=== PATIENT | female | born 1980 | race Caucasian/White ===

== ENCOUNTER 2017-10-05 02:43 | Inpatient (IN) | payer MEDICAID ==
[2017-10-05] MEDS ORDERED: CEFAZOLIN 2 GM/50 ML (PMX) 50 ML IV (04:00)
[2017-10-05] MEDS ORDERED: OXYTOCIN 30 UNITS/LR 500 ML IV ×2 (04:00→08:30)
[2017-10-05] MEDS ORDERED: METHYLERGONOVINE 0.2 MG INJ IM ×2 (04:00→08:30)
[2017-10-05] MEDS ORDERED: MISOPROSTOL 200 MCG TAB PR ×2 (04:00→08:30)
[2017-10-05] MEDS ORDERED: CARBOPROST 250 MCG INJ IM ×2 (04:00→08:30)
[2017-10-05] MEDS: LACTATED RINGER'S 1,000 ML IV ×5 (04:33→22:44)
[2017-10-05 04:50] LABS: ADD MAN DIFF? NO
[2017-10-05 04:52] LABS: WHITE BLOOD COUNT 8.9 10^3/ul (4.8-10.8)
[2017-10-05 04:52] LABS: BASOPHILS % 0.2 % (0.0-2.0); EOSINOPHILS # 0.1 10^3/ul (0.0-0.5); EOSINOPHILS % 0.9 % (0.0-7.0); HEMATOCRIT 36.2 % (37.0-47.0); HEMOGLOBIN 12.7 g/dl (12.0-16.0); LYMPHOCYTES % 33.9 % (15.0-51.0); MEAN CORPUSCULAR HGB CONC 35.1 g/dl (32.0-37.0); MEAN CORPUSCULAR VOLUME 85.4 fl (82.0-101.0); MEAN PLATELET VOLUME 10.8 fl (7.4-10.4); MONOCYTE # 0.6 10^3/ul (0.3-0.9); MONOCYTES % 6.2 % (0.0-11.0); NEUTROPHIL # 5.1 10^3/ul (1.6-7.5); NEUTROPHILS % 57.8 % (39.0-77.0); PLATELET COUNT 157 10^3/UL (140-415); RED BLOOD COUNT 4.24 10^6/ul (4.20-5.40); RED CELL DISTRIBUTION WIDTH 14.3 % (11.5-14.5)
[2017-10-05] MEDS ORDERED: BUTORPHANOL 2 MG INJ IV (05:00)
[2017-10-05 05:11] LABS: INR 0.91; PROTIME 12.3 Sec (11.9-14.9)
[2017-10-05 05:12] LABS: PARTIAL THROMBOPLASTIN TIME 28.3 Sec (25.0-35.0)
[2017-10-05 05:16] LABS: GLUCOSE 108 mg/dl (70-220)
[2017-10-05] MEDS ORDERED: DEXTROSE 5%-LR 1,000 ML IV (05:30)
[2017-10-05] MEDS ORDERED: morphine SULFATE/PF (10 MG/10 ML) INJ (06:34)
[2017-10-05] MEDS ORDERED: BUPIVACAINE 0.75%/DEXT (SPINAL) 2 ML INJ (06:34)
[2017-10-05] MEDS ORDERED: PHENYLephrine (100 MCG/ML) 5ML SYG ×5 (06:43→07:39)
[2017-10-05] MEDS ORDERED: OXYTOCIN 30 UNITS/LR 500 ML BAG IV (07:00)
[2017-10-05] MEDS ORDERED: ONDANSETRON 4 MG INJ (07:38)
[2017-10-05] MEDS: OXYTOCIN 30 UNITS/LR 500 ML IV ×2 (08:22→10:19)
[2017-10-05] MEDS ORDERED: OXYCODONE/ACETAMINOPHEN (5/325) TAB PO (08:30)
[2017-10-05] MEDS ORDERED: LANOLIN 7 GM TUBE TOP (08:30)
[2017-10-05] MEDS ORDERED: ZOLPIDEM 5 MG TAB PO (09:30)
[2017-10-05] MEDS ORDERED: ONDANSETRON 4 MG INJ IV ×2 (09:30)
[2017-10-05] MEDS ORDERED: HYDROmorphONE 0.5 MG/0.5 ML SYG IV ×2 (09:30)
[2017-10-05] MEDS ORDERED: FENTAnyl 50 MCG/ML VIAL IV (09:30)
[2017-10-05] MEDS ORDERED: HYDROmorphONE (0.2 MG/ML) 10ML SYG IV (09:30)
[2017-10-05] MEDS ORDERED: NALOXONE (0.4 MG/ML) INJ IV (09:30)
[2017-10-05] MEDS ORDERED: MEPERIDINE 25 MG INJ IV (09:30)
[2017-10-05] MEDS ORDERED: DIPHENHYDRAMINE 50 MG INJ IV ×2 (09:30)
[2017-10-05] MEDS ORDERED: PROCHLORPERAZINE 10 MG INJ IV (09:30)
[2017-10-05] MEDS: PROCHLORPERAZINE 10 MG INJ IV (09:32)
[2017-10-05] MEDS: KETOROLAC 30 MG INJ IV (09:34)
[2017-10-05] MEDS: ACCU-CHEK XX ×4 (13:06→20:05)
[2017-10-05] MEDS: SENNA/DOCUSATE NA (8.6MG/50MG) TAB PO ×2 (13:06→21:00)
[2017-10-05] MEDS: IBUPROFEN 800 MG TAB PO ×2 (13:09→22:00)
[2017-10-05] MEDS ORDERED: DEXTROSE 50% 50 ML SYRINGE IV ×2 (14:30)
[2017-10-05] MEDS ORDERED: GLUCOSE GEL 15 GRAM TUBE PO ×2 (14:30)
[2017-10-05] MEDS ORDERED: GLUCOSE GEL 15 GRAM TUBE BUCCAL (14:30)
[2017-10-05] MEDS ORDERED: GLUCAGON 1 MG INJ IM (14:30)
[2017-10-05 14:57] LABS: HEPATITIS B SURFACE ANTIBODY NEGATIVE (NEGATIVE); HEPATITIS C VIRAL ANTIBODY NEGATIVE (NEGATIVE)
[2017-10-05] MEDS: INSULIN ASPART [NOVOLOG] 3 ML PEN SC ×2 (18:05→22:57)
[2017-10-05 18:37] LABS: RAPID PLASMA REAGIN NONREACTIVE (NR)
[2017-10-05] MEDS: metFORMIN 500 MG TAB PO (20:21)
[2017-10-05] MEDS: FISH OIL 1,000 MG CAP PO (21:00)
[2017-10-06] MEDS: KETOROLAC 30 MG INJ IV ×2 (00:16→07:26)
[2017-10-06] MEDS: IBUPROFEN 800 MG TAB PO ×3 (05:55→21:26)
[2017-10-06] MEDS: INSULIN ASPART [NOVOLOG] 3 ML PEN SC ×4 (08:05→21:00)
[2017-10-06] MEDS: LACTATED RINGER'S 1,000 ML IV (08:23)
[2017-10-06] MEDS: metFORMIN 500 MG TAB PO ×2 (08:31→18:27)
[2017-10-06] MEDS: FISH OIL 1,000 MG CAP PO ×2 (08:35→21:27)
[2017-10-06] MEDS: SENNA/DOCUSATE NA (8.6MG/50MG) TAB PO ×2 (08:42→21:27)
[2017-10-06 08:57] LABS: ADD MAN DIFF? NO
[2017-10-06 09:05] LABS: WHITE BLOOD COUNT 10.1 10^3/ul (4.8-10.8)
[2017-10-06 09:05] LABS: BASOPHILS % 0.3 % (0.0-2.0); EOSINOPHILS % 0.4 % (0.0-7.0); HEMATOCRIT 33.4 % (37.0-47.0); LYMPHOCYTES # 2.7 10^3/ul (0.8-2.9); LYMPHOCYTES % 26.2 % (15.0-51.0); MEAN CORPUSCULAR HEMOGLOBIN 28.4 pg (29.0-33.0); MEAN CORPUSCULAR HGB CONC 32.9 g/dl (32.0-37.0); MEAN CORPUSCULAR VOLUME 86.3 fl (82.0-101.0); MEAN PLATELET VOLUME 10.5 fl (7.4-10.4); MONOCYTE # 0.5 10^3/ul (0.3-0.9); MONOCYTES % 4.4 % (0.0-11.0); NEUTROPHIL # 6.9 10^3/ul (1.6-7.5); NEUTROPHILS % 67.8 % (39.0-77.0); PLATELET COUNT 149 10^3/UL (140-415); RED BLOOD COUNT 3.87 10^6/ul (4.20-5.40); RED CELL DISTRIBUTION WIDTH 14.2 % (11.5-14.5)
[2017-10-06] MEDS: ACCU-CHEK XX ×3 (10:05→20:57)
[2017-10-06] MEDS: OXYCODONE/ACETAMINOPHEN (5/325) TAB PO ×2 (12:18→17:32)
[2017-10-07] MEDS: IBUPROFEN 800 MG TAB PO ×3 (05:37→22:40)
[2017-10-07] MEDS: INSULIN ASPART [NOVOLOG] 3 ML PEN SC ×4 (08:05→21:00)
[2017-10-07] MEDS: FISH OIL 1,000 MG CAP PO ×2 (08:34→21:03)
[2017-10-07] MEDS: metFORMIN 500 MG TAB PO ×2 (08:35→17:59)
[2017-10-07] MEDS: OXYCODONE/ACETAMINOPHEN (5/325) TAB PO ×2 (08:35→20:23)
[2017-10-07] MEDS: SENNA/DOCUSATE NA (8.6MG/50MG) TAB PO ×2 (08:35→21:03)
[2017-10-07] MEDS: ACCU-CHEK XX ×3 (10:44→21:04)
[2017-10-07] MEDS: MAGNESIUM HYDROXIDE 30ML CUP PO (18:55)
[2017-10-08] MEDS: OXYCODONE/ACETAMINOPHEN (5/325) TAB PO (02:09)
[2017-10-08] MEDS: IBUPROFEN 800 MG TAB PO ×2 (05:49→13:24)
[2017-10-08] MEDS: INSULIN ASPART [NOVOLOG] 3 ML PEN SC ×2 (08:05→11:50)
[2017-10-08] MEDS: FISH OIL 1,000 MG CAP PO (08:34)
[2017-10-08] MEDS: metFORMIN 500 MG TAB PO (08:34)
[2017-10-08] MEDS: SENNA/DOCUSATE NA (8.6MG/50MG) TAB PO (08:34)
[2017-10-08] MEDS: DIPHTH/TET/ACEL PERTUSS (ADULT) 0.5 ML VIAL IM* (09:00)
[2017-10-08 09:34] LABS: CHOLESTEROL 184 mg/dl (100-200)
[2017-10-08 09:34] LABS: CHOL/HDL RATIO 4.9 RATIO; HDL CHOLESTEROL 37 mg/dl (34-82)
[2017-10-08] MEDS: ACCU-CHEK XX ×2 (10:05→14:41)
[2017-10-08 10:09] LABS: LDL CHOLESTEROL,CALCULATED 41 mg/dl; TRIGLYCERIDES 530 mg/dl (0-149)
== END 2017-10-08 17:30 | disposition home or self-care (01) | DRG 766 ==
LOC: OBT 02:43 → L-D 02:43 → OBT 03:30 → L-D 03:30 → PP1 10:50
PROVIDERS: Obstetrics & Gynecology
PROC: 10D00Z1 Extraction of Products of Conception, Low, Open Approach (ICD-10-PCS; principal; 2017-10-05)
DX: O24.12 Pre-existing type 2 diabetes mellitus, in childbirth (principal); O34.211 Maternal care for low transverse scar from previous cesarean delivery; O99.283 Endocrine, nutritional and metabolic diseases complicating pregnancy, third trimester; O99.214 Obesity complicating childbirth; E66.01 Morbid (severe) obesity due to excess calories; E78.2 Mixed hyperlipidemia; E11.9 Type 2 diabetes mellitus without complications; Z68.39 Body mass index [BMI] 39.0-39.9, adult; O99.613 Diseases of the digestive system complicating pregnancy, third trimester; K76.0 Fatty (change of) liver, not elsewhere classified; Z37.0 Single live birth; Z3A.38 38 weeks gestation of pregnancy; Z79.84 Long term (current) use of oral hypoglycemic drugs
CPT/HCPCS: 80061; 82947; 82962; 85025; 85610; 85730; 86592; 86706; 86803; 86850; 86900; 86901; 99464

== ENCOUNTER 2018-06-14 21:35 | Emergency (ER) | payer MEDICAID, OTHER ==
[2018-06-15 01:18] LABS: ADD MAN DIFF? NO
[2018-06-15 01:21] LABS: BASOPHILS % 0.2 % (0.0-2.0); EOSINOPHILS # 0.2 10^3/ul (0.0-0.5); EOSINOPHILS % 1.8 % (0.0-7.0); HEMATOCRIT 39.1 % (37.0-47.0); HEMOGLOBIN 12.9 g/dl (12.0-16.0); LYMPHOCYTES # 3.2 10^3/ul (0.8-2.9); LYMPHOCYTES % 37.7 % (15.0-51.0); MEAN CORPUSCULAR HEMOGLOBIN 28.7 pg (29.0-33.0); MEAN CORPUSCULAR VOLUME 87.1 fl (82.0-101.0); MEAN PLATELET VOLUME 8.9 fl (7.4-10.4); MONOCYTE # 0.5 10^3/ul (0.3-0.9); MONOCYTES % 5.9 % (0.0-11.0); NEUTROPHIL # 4.6 10^3/ul (1.6-7.5); NEUTROPHILS % 53.9 % (39.0-77.0); PLATELET COUNT 233 10^3/UL (140-415); RED BLOOD COUNT 4.49 10^6/ul (4.20-5.40); RED CELL DISTRIBUTION WIDTH 12.1 % (11.5-14.5)
[2018-06-15 01:21] LABS: WHITE BLOOD COUNT 8.4 10^3/ul (4.8-10.8)
[2018-06-15 01:29] LABS: ADD UMIC YES; UR ASCORBIC ACID NEGATIVE (NEGATIVE); UR BILIRUBIN (Dip) NEGATIVE (NEGATIVE); UR BLOOD (Dip) 3+ mg/dL (NEGATIVE); UR CLARITY CLEAR (CLEAR); UR COLOR YELLOW (YELLOW); UR GLUCOSE (Dip) 1+ mg/dL (NEGATIVE); UR KETONES (Dip) TRACE mg/dL (NEGATIVE); UR LEUKOCYTE ESTERASE (Dip) NEGATIVE Leu/ul (NEGATIVE); UR MUCUS FEW /HPF (NONE SEEN); UR NITRITE (Dip) NEGATIVE (NEGATIVE); UR RBC 3 /HPF (0-5); UR SPECIFIC GRAVITY (Dip) 1.031 (1.003-1.030); UR SQUAMOUS EPITHELIAL CELL FEW /HPF (FEW); UR TOTAL PROTEIN (Dip) 1+ mg/dl (NEGATIVE); UR UROBILINOGEN (Dip) 1+ mg/dL (NEGATIVE); UR WBC 4 /HPF (0-5)
[2018-06-15 01:38] LABS: ALANINE AMINOTRANSFERASE 41 IU/L (13-69); ALBUMIN 4.4 g/dl (3.3-4.9); ALBUMIN/GLOBULIN RATIO 1.41; ALKALINE PHOSPHATASE 92 IU/L (42-121); ANION GAP 11 (5-13); ASPARTATE AMINO TRANSFERASE 30 IU/L (15-46); BILIRUBIN,INDIRECT 0.2 mg/dl (0-1.1); BILIRUBIN,TOTAL 0.2 mg/dl (0.2-1.3); BLOOD UREA NITROGEN 13 mg/dl (7-20); CALCIUM 9.5 mg/dl (8.4-10.2); CARBON DIOXIDE 27 mmol/L (21-31); CHLORIDE 103 mmol/L (97-110); CREATININE 0.48 mg/dl (0.44-1.00); Estimated GFR > 60 mL/min (>60); GLUCOSE 110 mg/dl (70-220); POTASSIUM 3.8 mmol/L (3.5-5.1); SODIUM 141 mmol/L (135-144); TOTAL PROTEIN 7.5 g/dl (6.1-8.1)
[2018-06-15 01:42] LABS: LIPASE 42 U/L (23-300)
== END 2018-06-15 03:22 | disposition home or self-care (01) ==
LOC: FTE 21:35
DX: O20.9 Hemorrhage in early pregnancy, unspecified (principal); O24.311 Unspecified pre-existing diabetes mellitus in pregnancy, first trimester; R10.2 Pelvic and perineal pain; Z3A.01 Less than 8 weeks gestation of pregnancy
CPT/HCPCS: 36415; 76801; 76817; 80053; 81001; 83690; 84702; 85025; 86900; 86901; 99284-25